=== PATIENT | female | born 1995 | race American Indian/Alaskan Native ===

== ENCOUNTER 2017-02-13 00:39 | Emergency (ER) | payer SELFPAY ==
[2017-02-13] MEDS ORDERED: BENADRYL PO ONE ×2 (01:52→01:53)
--- NOTE | 2017-02-13 03:12 | Emergency Department Report ---
HPI - General Chief Complaint: Skin Rash Time Seen by Provider: 02/13/17 02:21 - HPI HPI: Patient is a 21 year old with no history condition presents to ED complaining of left stair and swelling itching times today. Patient states she is is woke up and noticed that her finger was swollen and aching. She notices slightly red bouchra on her finger. Patient states she did not see anything bite her or sting her. She denies fevers/chills/nausea/vomiting/abdominal pain chest pain dizziness headaches or any other problem. ED Past Medical Hx - Past Medical History Previous Medical History?: No - Surgical History Past Surgical History?: No - Social History Smoking Status: Never Smoker Substance Use Type: None - Medications Home Medications: Home Medications Medication Instructions Recorded Confirmed Last Taken Type Hydrocortisone 0.5% (Nf) 1 applicatio TP TID #1 tube 02/13/17 Unknown Rx [Hydrocortisone 0.5% OINT] diphenhydrAMINE [Benadryl CAP] 25 mg PO QHS PRN #24 capsule 02/13/17 Unknown Rx ED Review of Systems ROS: Stated complaint: BUG BITE Other details as noted in HPI Constitutional: denies: chills, fever Eyes: denies: eye pain, eye discharge, vision change ENT: denies: ear pain, throat pain Respiratory: denies: cough, shortness of breath, wheezing Cardiovascular: denies: chest pain, palpitations Endocrine: no symptoms reported Gastrointestinal: denies: abdominal pain, nausea, diarrhea Genitourinary: denies: urgency, dysuria, discharge Musculoskeletal: denies: back pain, joint swelling, arthralgia Skin: denies: rash, lesions Neurological: denies: headache, weakness, paresthesias Psychiatric: denies: anxiety, depression Hematological/Lymphatic: denies: easy bleeding, easy bruising Physical Exam - Physical Exam Vital Signs: Vital Signs 02/13/17 01:12 Temperature 98.6 F Pulse Rate 81 Respiratory 18 Rate Blood Pressure 113/73 O2 Sat by Pulse 100 Oximetry Physical Exam: GENERAL: Alert and oriented x3, no apparent distress, Normal Gait, atraumatic. HEAD: Head is normocephalic and a-traumatic. EYES: Extra ocular muscles are intact. Pupils are equal, round, and reactive to light and accommodation. LUNGS: Symetrical with respiration, No wheezing, no rales or crackles, CTAB. HEART: S1, S2 present, regular rate and rhythm without murmur, no rubs, no gallops. Non tender to palpation EXTREMITIES/MUSCULOSKELETAL: No cyanosis, clubbing, rash. Full ROM bilaterally. UE Pulses 2+ bilaterally. One raised red lesion on posterior left hand. Nontender to palpation, mildly swollen. NEUROLOGIC: The patient is cooperative with no focal neurologic deficits. Normal speech. Normal sensation in bilateral upper and lower extremities, No loss of sensation, SKIN: Warm and dry, No lesions, No ulceration or induration present. ED Course Vital Signs 02/13/17 01:12 Temperature 98.6 F Pulse Rate 81 Respiratory 18 Rate Blood Pressure 113/73 O2 Sat by Pulse 100 Oximetry ED Medical Decision Making - Medical Decision Making 21-year-old female presents with insect bite ED course: Patient received 50 mg of Benadryl in the ED for each Discussed patient to monitor swelling. Discussed continue Benadryl as needed for itching Vital signs are normal patient is in no acute distress Discussed with patient if symptoms worsen to return to ED. Critical care attestation.: If time is entered above; I have spent that time in minutes in the direct care of this critically ill patient, excluding procedure time. ED Disposition Clinical Impression: Insect bite Qualifiers: Encounter type: initial encounter Qualified Code(s): W57.XXXA - Bitten or stung by nonvenomous insect and other nonvenomous arthropods, initial encounter Cellulitis Qualifiers: Site of cellulitis: extremity Site of cellulitis of extremity: upper extremity Laterality: left Qualified Code(s): L03.114 - Cellulitis of left upper limb Disposition: - TO HOME OR SELFCARE Is pt being admited?: No Does the pt Need Aspirin: No Condition: Stable Instructions: Insect Bite or Sting (ED), Cellulitis (ED) Additional Instructions: If symptoms get worse please return to ED Follow up with primary care physician Take medication as prescribed Prescriptions: diphenhydrAMINE [Benadryl CAP] 25 mg PO QHS PRN #24 capsule PRN Reason: Allergic Reaction Hydrocortisone 0.5% (Nf) [Hydrocortisone 0.5% OINT] 1 applicatio TP TID #1 tube Referrals: PRIMARY CARE, [Primary Care Provider] - 3-5 Days [facility] [Outside] - 3-5 Days [facility] [Outside] - 3-5 Days [facility] [Outside] - 3-5 Days Forms: Accompanied Note, Work/School Release Form(ED) Time of Disposition: 03:15
[2017-02-13 03:40] VITALS: BP 112/73
== END 2017-02-13 03:40 | disposition home or self-care (01) ==
LOC: ED 00:39
DX: S60.562A Insect bite (nonvenomous) of left hand, initial encounter (principal); L03.114 Cellulitis of left upper limb; W57.XXXA Bitten or stung by nonvenomous insect and other nonvenomous arthropods, initial encounter; Y93.89 Activity, other specified; Y92.89 Other specified places as the place of occurrence of the external cause; Y99.8 Other external cause status
CPT/HCPCS: 99282

== ENCOUNTER 2017-08-01 18:19 | Emergency (ER) | payer SELFPAY ==
[2017-08-01 18:27] VITALS: BP 135/75
[2017-08-01 19:09] LABS: Alanine Aminotransferase 12 units/L (7-56); Albumin 4.3 g/dL (3.9-5); BUN/Creatinine Ratio 22; Blood Urea Nitrogen 13 mg/dL (7-17); Calcium 9.4 mg/dL (8.4-10.2); Hematocrit 41.2 % (30.3-42.9); Hemoglobin 13.8 gm/dl (10.1-14.3); Hemolysis Index 28; Mean Corpuscular HGB Conc 34 % (30-34); Mean Corpuscular Hemoglobin 31 pg (28-32); Mean Corpuscular Volume 93 fl (79-97); Platelet Count 209 K/mm3 (140-440); Red Blood Count 4.42 M/mm3 (3.65-5.03); Red Cell Distribution Width 13.7 % (13.2-15.2)
== END 2017-08-01 18:30 | disposition left against medical advice (07) ==
LOC: ED 18:19
DX: R10.9 Unspecified abdominal pain (principal); Z53.21 Procedure and treatment not carried out due to patient leaving prior to being seen by health care provider
CPT/HCPCS: 36415; 80053; 84703; 85025

== ENCOUNTER 2017-08-02 08:47 | Emergency (ER) | payer SELFPAY ==
[2017-08-02] MEDS ORDERED: SUBLIMAZE IV ONE (10:22)
[2017-08-02] MEDS ORDERED: NACL 0.9% 1000 ML 1,000 ML IV ONE (10:22)
[2017-08-02] MEDS ORDERED: ZOFRAN IV ONE (10:22)
--- NOTE | 2017-08-02 10:29 | Emergency Department Report ---
HPI - General Chief Complaint: Abdominal Pain Time Seen by Provider: 08/02/17 10:16 - HPI HPI: Room 25 The patient is a 22-year-old female presenting with a chief complaint of abdominal pain. The patient states she awakened yesterday morning with severe pain in the right lower quadrant and midepigastric region. The pain has been constant and sharp in nature. The patient admits to nausea and vomiting but denies diarrhea. Patient denies dysuria or vaginal discharge. Patient denies fever. Patient is equivocal when asked about anorexia. The patient gives her pain a score of 10/10 Location: [See above] Duration: Constant since yesterday morning Quality: Sharp Severity: 10/10 Modifying factors: [see above] Context: [see above] Mode of transportation: [not driving] ED Past Medical Hx - Past Medical History Previous Medical History?: Yes Additional medical history: abd pain - Surgical History Past Surgical History?: No - Family History Family history: no significant - Social History Smoking Status: Current Some Day Smoker Substance Use Type: None (denies illicit drug use), Alcohol (occasional) - Medications Home Medications: Home Medications Medication Instructions Recorded Confirmed Last Taken Type No Known Home Medications [No 08/02/17 08/02/17 Unknown History Reported Home Medications] ED Review of Systems ROS: Stated complaint: STOMACH PAIN Other details as noted in HPI Constitutional: denies: fever Gastrointestinal: abdominal pain, nausea, vomiting. denies: diarrhea Genitourinary: denies: dysuria, discharge, abnormal menses Physical Exam - Physical Exam Vital Signs: Vital Signs 08/02/17 08/02/17 08/02/17 08:49 09:50 09:52 Temperature 97.9 F Pulse Rate 58 L 72 Respiratory 22 17 Rate Blood Pressure 92/76 Blood Pressure 113/50 [Left] O2 Sat by Pulse 100 98 98 Oximetry Physical Exam: GENERAL: The patient is well-developed well-nourished female lying on stretcher in the right lateral decubitus position appeared to be in moderate discomfort. [ ] HEENT: Normocephalic. Atraumatic. Extraocular motions are intact. Patient has moist mucous membranes. NECK: Supple. Trachea midline CHEST/LUNGS: Clear to auscultation. There is no respiratory distress noted. HEART/CARDIOVASCULAR: Regular. There is no tachycardia. There is no gallop rub or murmur. ABDOMEN: Abdomen is soft, with tenderness to palpation in the right upper quadrant and right lower quadrant. Negative obturator sign. Patient has normal bowel sounds. There is no abdominal distention. SKIN: There is no rash. There is no diaphoresis. NEURO: The patient is awake, alert, and oriented. The patient is cooperative. The patient has normal speech MUSCULOSKELETAL: There is no evidence of acute injury. ED Course Vital Signs 08/02/17 08/02/17 08/02/17 08:49 09:50 09:52 Temperature 97.9 F Pulse Rate 58 L 72 Respiratory 22 17 Rate Blood Pressure 92/76 Blood Pressure 113/50 [Left] O2 Sat by Pulse 100 98 98 Oximetry - Consultations Consultation #1: 08/02/17 12:12 Surgery paged 08/02/17 12:23 Case discussed with surgeon Dr. Duffy- recommends repeating CT with oral contrast. Will evaluate 08/02/17 13:[address] Duffy after his evaluation-recommends patient be admitted by the hospitalist for pain control. Recommends have an SENIOR HUMAN RESOURCES REPRESENTATIVE consult as well ED Medical Decision Making - Lab Data Result diagrams: 08/02/17 10:43 08/02/17 10:43 Laboratory Tests 08/02/17 08/02/17 08/02/17 10:05 10:43 10:43 WBC 7.6 RBC 4.14 Hgb 12.7 Hct 38.0 MCV 92 MCH 31 MCHC 33 RDW 13.4 Plt Count 198 Lymph % (Auto) 17.8 [place] % (Auto) 9.4 H Eos % (Auto) 0.1 Baso % (Auto) 0.6 Lymph # 1.3 [place] # 0.7 Eos # 0.0 Baso # 0.0 Seg Neutrophils % 72.1 H Seg Neutrophils # 5.4 Sodium 133 L Potassium 3.5 L Chloride 97.2 L Carbon Dioxide 19 L Anion Gap 20 BUN 14 Creatinine 0.5 L Estimated GFR > 60 BUN/Creatinine Ratio 28 Glucose 92 Calcium 8.7 Total Bilirubin 0.40 AST 12 ALT 11 Alkaline Phosphatase 61 Total Protein 6.9 Albumin 3.9 Albumin/Globulin Ratio 1.3 Lipase 36 HCG, Qual Negative Wet prep-less than 20% clue cells, no Trichomonas, no yeast - Radiology Data Radiology results: pending (repeat CT with oral contrast only), report reviewed (CT abdomen and pelvis), image reviewed (CT abdomen and pelvis) [facility] [address] [place] [address] Cat Scan Report Signed Patient: HEDY HURLEY MR#: [id number] : 1995 Acct:[id number] Age/Sex: 22 / F ADM Date: 08/02/17 Loc: ED Attending Dr: Ordering Physician: MARIA ISABEL BERNSTEIN MD Date of Service: 08/02/17 Procedure(s): CT abdomen pelvis w con Accession Number(s): [id number] cc: MARIA ISABEL BERNSTEIN MD CT scan of abdomen and pelvis with IV contrast: History: Severe right sided abdominal pain. Findings: Normal lung bases. No pleural or pericardial effusion. Normal liver spleen pancreas and gallbladder. Normal adrenals, kidneys and bladder. There is moderate amount of free intraperitoneal fluid noted in the cul-de-sac. A few fluid-filled loops of small bowel are identified within the pelvis. No wall thickening. Stool is noted throughout the colon. The appendix is not visualized however no evidence of appendicitis is noted in the pericecal region. Impression: Minimal to moderate amount of fluid in the cul-de-sac. No mass is identified in the adnexa however possibility of rupture of an ovarian cyst cannot be excluded. The fluid-filled loops of small bowel in the region may represent ileus. Clinical correlation and followup may be advised. Transcribed By: PTP Dictated By: RADHA CA MD Electronically Authenticated By: RADHA CA MD Signed Date/Time: 08/02/17 1053 DD/ 1049 TD/TT: 08/02/17 1053 - Differential Diagnosis appendicitis, renal colic, biliary colic, pyelonephritis, UTI Critical care attestation.: If time is entered above; I have spent that time in minutes in the direct care of this critically ill patient, excluding procedure time. ED Disposition Clinical Impression: Acute abdominal pain, Intractable abdominal pain Disposition: OP ADMIT IP TO THIS HOSP Is pt being admited?: Yes Does the pt Need Aspirin: No Condition: Fair Instructions: Abdominal Pain (ED) Referrals: PRIMARY CARE, [Primary Care Provider] - 3-5 Days Time of Disposition: 14:12 (Hospitalist notified (Dr Mandel))
[2017-08-02 10:55] LABS: Basophils % (Auto) 0.6 % (0.0-1.8); Eosinophils % (Auto) 0.1 % (0.0-4.3); Hemoglobin 12.7 gm/dl (10.1-14.3); Lymphocytes # (Auto) 1.3 K/mm3 (1.2-5.4); Lymphocytes % (Auto) 17.8 % (13.4-35.0); Mean Corpuscular HGB Conc 33 % (30-34); Mean Corpuscular Hemoglobin 31 pg (28-32); Mean Corpuscular Volume 92 fl (79-97); Monocytes # (Auto) 0.7 K/mm3 (0.0-0.8); Monocytes % (Auto) 9.4 % (0.0-7.3); Platelet Count 198 K/mm3 (140-440); Red Blood Count 4.14 M/mm3 (3.65-5.03); Red Cell Distribution Width 13.4 % (13.2-15.2)
[2017-08-02 11:09] LABS: Alanine Aminotransferase 11 units/L (7-56); Albumin 3.9 g/dL (3.9-5); BUN/Creatinine Ratio 28; Blood Urea Nitrogen 14 mg/dL (7-17); Calcium 8.7 mg/dL (8.4-10.2); Hemolysis Index 11; Lipase 36 units/L (13-60)
--- NOTE | 2017-08-02 11:14 | Cat Scan Report ---
CT scan of abdomen and pelvis with IV contrast: History: Severe right sided abdominal pain. Findings: Normal lung bases. No pleural or pericardial effusion. Normal liver spleen pancreas and gallbladder. Normal adrenals, kidneys and bladder. There is moderate amount of free intraperitoneal fluid noted in the cul-de-sac. A few fluid-filled loops of small bowel are identified within the pelvis. No wall thickening. Stool is noted throughout the colon. The appendix is not visualized however no evidence of appendicitis is noted in the pericecal region. Impression: Minimal to moderate amount of fluid in the cul-de-sac. No mass is identified in the adnexa however possibility of rupture of an ovarian cyst cannot be excluded. The fluid-filled loops of small bowel in the region may represent ileus. Clinical correlation and followup may be advised.
[2017-08-02 11:46] VITALS: BP 103/62
[2017-08-02] MEDS ORDERED: SUBLIMAZE IV PRN (13:31)
--- NOTE | 2017-08-02 14:30 | History and Physical Report ---
History of Present Illness Chief complaint: My stomach hurts History of present illness: 22 YO Female with Nicotine Dependence presents to ED for evaluation of abdominal pain. Pt seen and evaluated in ED and found to have evidence of ruptured ovarian cyst of CT abdomen and pelvis. Surgery consulted in ED. Repeat CT abdomen/Pelvis with oral contrast does not reveal any acute findings. Pt treated with IVF resuscitation therapy. Pt medically optimized and discharged home. Pt instructed to f/u with GLOBAL SAFETY OFFICER within 3-5 days for f/u care. Past History Past Medical History: No medical history Past Surgical History: No surgical history Social history: single, smoking Family history: hypertension Medications and Allergies Allergies Allergy/AdvReac Type Severity Reaction Status Date / Time No Known Allergies Allergy Verified 02/13/17 01:57 Home Medications Medication Instructions Recorded Confirmed Last Taken Type Ondansetron [Zofran Odt] 4 mg PO Q8HR #10 tab.rapdis 08/02/17 Unknown Rx oxyCODONE /ACETAMINOPHEN [Percocet 1 tab PO Q6HR PRN #10 tablet 08/02/17 Unknown Rx 5/325] Active Meds: Active Medications Fentanyl (Sublimaze) 50 mcg IV ONCE PRN PRN Reason: Pain Last Admin: 08/02/17 14:01 Dose: 50 mcg Review of Systems Constitutional: no weight loss, no weight gain, no fever, no chills, no anorexia , no fatigue, no weakness, no malaise Ears, nose, mouth and throat: no ear pain, no ear discharge, no tinnitis, no decreased hearing, no nose pain, no nasal congestion, no nasal discharge, no sinus pressure Breasts: no change in shape, no swelling, no mass Cardiovascular: no chest pain, no orthopnea, no palpitations, no rapid/ irregular heart beat, no edema, no syncope Respiratory: no cough, no cough with sputum, no excessive sputum, no hemoptysis , no shortness of breath Gastrointestinal: abdominal pain, nausea, vomiting, no diarrhea, no constipation , no change in bowel habits, no hematemesis, no BRBPR, no melena, no hematochezia, no loss of appetite, no early satiety, no heartburn, no indigestion, no excessive gas, no jaundice, no dyspepsia/bloating Genitourinary Female: dyspareunia, flank pain, no menorrhagia, no dysuria, no urinary frequency, no urgency Rectal: no pain, no incontinence, no bleeding Musculoskeletal: no neck stiffness, no neck pain, no shooting arm pain, no arm numbness/tingling, no low back pain, no shooting leg pain, no leg numbness/ tingling, no redness of joints Integumentary: no rash, no pruritis, no redness, no sores, no wounds, no jaundice, no boils Neurological: no head injury, no transient paralysis, no paralysis, no weakness , no parathesias, no numbness, no tingling, no seizures Psychiatric: no anxiety, no memory loss, no change in sleep habits, no sleep disturbances, no insomnia, no hypersomnia, no change in appetite Endocrine: no cold intolerance, no heat intolerance, no polyphagia, no excessive thirst, no polydipsia, no polyuria, no nocturia Hematologic/Lymphatic: no easy bruising, no easy bleeding, no lymphadenopathy, no lymphedema Allergic/Immunologic: no urticaria, no allergic rhinitis, no wheezing, no persistent infections, no anaphylaxis, no angioedema Exam - Constitutional Vitals: Temp Pulse Resp BP Pulse Ox 97.9 F 79 16 103/62 97 08/02/17 08:49 08/02/17 11:24 08/02/17 11:24 08/02/17 11:24 08/02/17 11:24 General appearance: Present: no acute distress, well-nourished - EENT Eyes: Present: PERRL ENT: hearing intact, clear oral mucosa - Neck Neck: Present: supple, normal ROM - Respiratory Respiratory effort: normal Respiratory: bilateral: CTA - Cardiovascular Heart Sounds: Present: S1 & S2. Absent: rub, click - Extremities Extremities: pulses symmetrical, No edema Peripheral Pulses: within normal limits - Abdominal General gastrointestinal: Present: soft, non-tender, non-distended, normal bowel sounds Female genitourinary: Present: normal - Integumentary Integumentary: Present: clear, warm, dry - Musculoskeletal Musculoskeletal: gait normal, strength equal bilaterally - Psychiatric Psychiatric: appropriate mood/affect, intact judgment & insight - Neurologic Neurologic: CNII-XII intact, moves all extremities Results - Labs CBC & Chem 7: 08/02/17 10:43 08/02/17 10:43 Labs: Abnormal lab results 08/02/17 08/02/17 Range/Units 10:43 10:43 [place] % (Auto) 9.4 H (0.0-7.3) % Seg Neutrophils % 72.1 H (40.0-70.0) % Sodium 133 L (137-145) mmol/L Potassium 3.5 L (3.6-5.0) mmol/L Chloride 97.2 L (98-107) mmol/L Carbon Dioxide 19 L (22-30) mmol/L Creatinine 0.5 L (0.7-1.2) mg/dL Assessment and Plan - Patient Problems (1) Ovarian cyst Current Visit: Yes Status: Acute Plan to address problem: IVF resusciation, anti emetic therpay, CT abdomen pelvis completed without evidence of acute intraabdominal findings. , Surgery consulted in ED. D/C home f /u GLOBAL SAFETY OFFICER 3 days, pain control. Return to ED if worsening symptoms. (2) Acute abdominal pain Current Visit: Yes Status: Acute Plan to address problem: secondary to ovarian cyst. pain control, anti emetic therapy.
--- NOTE | 2017-08-02 15:08 | Cat Scan Report ---
FINAL REPORT PROCEDURE: CT ABDOMEN PELVIS WO CON TECHNIQUE: Computerized axial tomography of the abdomen and pelvis was performed without intravenous contrast. Oral contrast was administered. This study is performed without intravascular contrast material and its sensitivity for abdominal and pelvic pathology, including neoplasms, inflammation, abscess, free fluid, thrombosis, arterial dissection and infarction, is reduced compared with a contrast enhanced study. HISTORY: right-sided abdominal pain COMPARISON: 08/02/2017 FINDINGS: Visualized lower thorax: No significant abnormality. Liver: Normal size and attenuation. Spleen: Normal size and attenuation. Gallbladder and biliary system: Normal. Pancreas: Normal. Adrenals: Normal. Kidneys: There is residual excreted IV contrast from the prior study. No hydronephrosis is identified bilaterally. GI tract: Oral contrast has been administered, which transits to distal ileal loops, however contrast does not extend to the terminal ileum or cecum. Again the appendix is not diagnostically visualized or evaluated, however no pericecal inflammatory changes are seen. No evidence of bowel obstruction or acute inflammation. Lymph nodes and mesentery: Normal. Vasculature: Normal. Bladder: Normal. Reproductive organs: Limited evaluation. Peritoneum: There is stable amount of free fluid in the pelvis. Musculoskeletal structures: No significant abnormality. Other: None. IMPRESSION: Oral contrast does not transit to the cecum, and the appendix is not diagnostically visualized or evaluated. No acute inflammatory changes are identified, however if there is concern for early appendicitis, follow-up exam could be obtained. Stable amount of free fluid is noted in the pelvis
[2017-08-02] MEDS ORDERED: SODIUM BICARBONATE IV ONE (16:00)
[2017-08-02] MEDS ORDERED: DILAUDID IV ONE (17:00)
[2017-08-02] MEDS ORDERED: DILAUDID ONE (17:04)
--- NOTE | 2017-08-03 02:09 | Consultation ---
REASON FOR CONSULTATION: Right lower quadrant abdominal pain, rule out appendicitis. HISTORY OF PRESENT ILLNESS: The patient is a 22-year-old female, who presented to the Emergency Room with recent onset of right lower quadrant abdominal pain accompanied by nausea and vomiting. Denies any diarrhea, dysuria or vaginal discharge. PAST MEDICAL HISTORY: Negative. PAST SURGICAL HISTORY: Negative. ALLERGIES: No known allergies. MEDICATIONS: No medications. FAMILY HISTORY: Negative. SOCIAL HISTORY: Occasional ethanol intake and smokes a cigar a day. REVIEW OF SYSTEMS: Noncontributory. PHYSICAL EXAMINATION: GENERAL: At this time reveals the patient to be bent over the left lateral decubitus position with knees bent in some discomfort. VITAL SIGNS: Showed her to be afebrile with a temperature of 97.9, blood pressure is 103/62, pulse of 79, respirations 16. HEENT: Pupils are equal and reactive to light and accommodation. Sclerae nonicteric. ABDOMEN: Examination of the abdomen reveals some right lower quadrant tenderness with guarding. Bowel sounds are hypoactive to absent. No scars are noted in the abdomen and again the patient states she has had no abdominal surgeries. LABORATORY DATA: Lab work at present includes a CBC, which shows a white count of 7.6, H and H is 12.7 and 38. Electrolytes show a low sodium of 133, low potassium of 3.5 and low chloride of 97, possibly consistent with a history of vomiting. Her BUN is 14 and creatinine is 0.5. LFTs are essentially normal. CT scan of the abdomen without p.o. contrast has been done, which I have reviewed with Dr. Thacker, the radiologist. The appendix cannot be visualized, but the surrounding pericecal area shows no evidence of any inflammatory changes. There is some fluid noted in the cul-de-sac. Slight ileus pattern is noted in the right lower quadrant of the abdomen. This presumably might be secondary to ruptured ovarian cyst causing the fluid as well as the slight localized ileus reaction. IMPRESSION: At this time is that of rule out ovarian cyst. I doubt appendicitis at present since no inflammatory changes are noted and white count is normal and no fever seen. However, we will proceed with followup CT with p.o. contrast to see if the appendix can be visualized. Either way, I would recommend the patient to be admitted as she is in significant pain. I recommend to keep her n.p.o., IV fluid hydration. Repeat CBC in the morning. Also, I would obtain a HAT FINISHER evaluation. I will follow with you. Thank you very much for consultation. JOB# [id number] SAUL/ROSEMARY
== END 2017-08-02 17:50 | disposition admitted as inpatient to this hospital (09) ==
LOC: ED 08:47
DX: R10.11 Right upper quadrant pain (principal); R10.31 Right lower quadrant pain; R10.13 Epigastric pain; R11.2 Nausea with vomiting, unspecified; F17.200 Nicotine dependence, unspecified, uncomplicated
CPT/HCPCS: 36415; 74176; 74177; 80053; 83690; 84703; 85025; 87210; 87591; 96361; 96374; 96375; 96376; 99285; J1170; J2405; J3010; J7030; Q9967

== ENCOUNTER 2021-09-29 17:42 | Emergency (ER) | payer SELFPAY ==
[2021-09-29 18:06] VITALS: BP 113/71
== END 2021-09-30 02:10 | disposition left against medical advice (07) ==
LOC: ED 17:42
DX: T63.441A Toxic effect of venom of bees, accidental (unintentional), initial encounter (principal); Z53.21 Procedure and treatment not carried out due to patient leaving prior to being seen by health care provider; Y92.89 Other specified places as the place of occurrence of the external cause